=== PATIENT | female | born 1965 | race African-American/Black ===

== ENCOUNTER 2018-04-02 23:46 | Emergency (ER) | payer OTHER ==
[~2018-04-02] VITALS: Ht 165.1 cm; Wt 40.8 kg
--- NOTE | 2018-04-03 01:14 | PHYS DOC ---
Past Medical History Past Medical History: Anemia, Dementia Past Surgical History: Other Additional Past Surgical Histo: NOT A GOOD HISTORIAN Alcohol Use: Sober Drug Use: None Adult General Chief Complaint Chief Complaint: LOWER EXTREMITY SWELLING HPI HPI Patient is a 52 year old female who presents with lower extremity swelling, tingling, and pain. Patient notes that yesterday she developed increased swelling and pain in her right lower extremity. And then today she noticed tingling in bilateral extremities more severe on the right than left. Patient notes she has had similar symptoms occasions, but is unable to recall any specific problems. She notes she has had issues with balance for the last couple months patient denies falls or syncope, she denies any change in her symptoms today. Patient notes she was [place] [facility] [place] was having problems with weakness and confusion and similar lower extremity symptoms. She reports she was diagnosed with presumptive dementia during this hospitalization and prescribed an unknown medication for the similar lower extremity symptoms. Information was hard to gather due to patient being a poor historian. Review of Systems Review of Systems Constitutional: Denies fever or chills [] Eyes: Denies change in visual acuity, redness, or eye pain [] HENT: Denies nasal congestion or sore throat [] Respiratory: Denies cough or shortness of breath [] Cardiovascular: No additional information not addressed in HPI [] GI: Denies abdominal pain, nausea, vomiting, bloody stools. Notes recent diarrhea [] : Denies dysuria or hematuria [] Musculoskeletal: Denies back pain or joint pain [] Integument: Denies rash or skin lesions [] Neurologic: Denies headache, focal weakness or sensory changes, notes recent balance issues[] Complete systems were reviewed and found to be within normal limits, except as documented in this note. Family History Family History Noncontributory Current Medications Current Medications Current Medications Medications (Trade) Dose Ordered Sig/Emily Start Time Stop Time Status Last Admin Dose Admin Sodium Chloride 1,000 ml @ 1,000 mls/hr 1X ONCE 04/03/18 01:15 04/03/18 02:15 DC Allergies Allergies Allergies Coded Allergies Type Severity Reaction Last Updated Verified aspirin Allergy Intermediate 04/02/18 Yes Physical Exam Physical Exam Constitutional: Well developed, well nourished, no acute distress, non-toxic appearance. [] HENT: Normocephalic, atraumatic, oropharynx moist, no oral exudates, nose normal. [] Eyes: PERRL, EOMI, conjunctiva normal, no discharge. [] Neck: Normal range of motion, no tenderness, supple, no stridor. [] Cardiovascular:Heart rate regular rhythm, no murmur [] Lungs & Thorax: Bilateral breath sounds clear to auscultation [] Abdomen: Nondistended, soft, mild suprapubic tenderness, no masses, no pulsatile masses. [] Skin: Warm, dry, ecchymoses on L volar forearm, no erythema on bilateral LE. [] Back: No tenderness, no CVA tenderness. [] Extremities: LLE tenderness, bilateral dorsal foot tenderness. no cyanosis, ROM intact, no edema. [] Neurologic: Alert and oriented X 3, normal motor function, normal sensory function, no focal deficits noted. CN II through XII intact bilaterally [] Psychologic: Affect normal, judgement normal, mood normal. [] Current Patient Data Vital Signs Vital Signs Date Time Temp Pulse Resp B/P (MAP) Pulse Ox O2 Delivery O2 Flow Rate FiO2 04/02/18 23:46 98.3 85 18 118/71 (87) 100 Room Air 98.3 Lab Values Laboratory Tests Test 04/03/18 01:30 White Blood Count 13.5 x10^3/uL (4.0-11.0) H Red Blood Count 2.42 x10^6/uL (3.50-5.40) L Hemoglobin 8.0 g/dL (12.0-15.5) L Hematocrit 24.4 % (36.0-47.0) L Mean Corpuscular Volume 101 fL (79-100) H Mean Corpuscular Hemoglobin 33 pg (25-35) Mean Corpuscular Hemoglobin Concent 33 g/dL (31-37) Red Cell Distribution Width 19.3 % (11.5-14.5) H Platelet Count 567 x10^3/uL (140-400) H Neutrophils (%) (Auto) 71 % (31-73) Lymphocytes (%) (Auto) 22 % (24-48) L Monocytes (%) (Auto) 6 % (0-9) Eosinophils (%) (Auto) 1 % (0-3) Basophils (%) (Auto) 1 % (0-3) Neutrophils # (Auto) 9.5 x10^3uL (1.8-7.7) H Lymphocytes # (Auto) 2.9 x10^3/uL (1.0-4.8) Monocytes # (Auto) 0.8 x10^3/uL (0.0-1.1) Eosinophils # (Auto) 0.1 x10^3/uL (0.0-0.7) Basophils # (Auto) 0.1 x10^3/uL (0.0-0.2) Prothrombin Time 20.0 SEC (11.7-14.0) H Prothrombin Time INR 1.8 (0.8-1.1) H PTT 44 SEC (24-38) H Sodium Level 140 mmol/L (136-145) Potassium Level 4.2 mmol/L (3.5-5.1) Chloride Level 111 mmol/L (98-107) H Carbon Dioxide Level 19 mmol/L (21-32) L Anion Gap 10 (6-14) Blood Urea Nitrogen 11 mg/dL (7-20) Creatinine 0.8 mg/dL (0.6-1.0) Estimated GFR (Cockcroft-Gault) 75.3 BUN/Creatinine Ratio 14 (6-20) Glucose Level 78 mg/dL (70-99) Lactic Acid Level 0.6 mmol/L (0.4-2.0) Calcium Level 7.6 mg/dL (8.5-10.1) L Magnesium Level 1.9 mg/dL (1.8-2.4) Total Bilirubin 0.6 mg/dL (0.2-1.0) Aspartate Amino Transferase (AST) 12 U/L (15-37) L Alanine Aminotransferase (ALT) 21 U/L (14-59) Alkaline Phosphatase 105 U/L (46-116) Total Protein 5.6 g/dL (6.4-8.2) L Albumin 2.2 g/dL (3.4-5.0) L Albumin/Globulin Ratio 0.6 (1.0-1.7) L Laboratory Tests 04/03/18 01:30 Laboratory Tests 04/03/18 01:30 EKG EKG [] Radiology/Procedures Radiology/Procedures PROCEDURE: VENOUS LOWER EXT BILATERAL Examination: Bilateral Lower Extremity Venous Doppler Ultrasound History: Bilateral leg swelling Comparison: None Procedure: Kline scale, color flow 2D and spectal waveform analysis images are obtained with and without compression in the area of the common femoral vein, superficial femoral vein - femoral vein junction, main femoral vein (superficial femoral vein) and popliteal vein. Veins of the proximal calf are also imaged. Findings: There is normal duplex flow, color flow and compressibility of all visualized vein segments. No evidence of deep venous thrombus is present. Soft tissue edema identified in the bilateral lower legs. Few prominent the bilateral inguinal lymph nodes identified. Impression: No evidence of DVT in the visualized bilateral lower extremity venous system. Electronically signed by: Denis Espinoza MD (04/03/2018 2:22 AM) [id number] ] Course & Med Decision Making Course & Med Decision Making 52-year-old female presenting with right lower extremity swelling for 2 days and bilateral lower extremity tingling for 1 day. Patient denies any chest pain shortness of breath history of DVT/PE. She notes she was recently admitted to [facility] for weakness confusion and to rule out intracranial neoplasm. Bilateral lower extremity upper ultrasound does not show any evidence of DVT. Labs were collected and evaluated. Hgb found to be 8.0 Patient's vital signs are stable and there is no evidence of an acute drop in hemoglobin. No previous results available for comparison. Patient also has a low albumin at 2.2. Discussed proper nutrition with the patient and there is a chance that this may also be related to her edema. Patient stable for discharge with outpatient follow-up with PCP. Discussed findings and plan with patient, who acknowledge understanding and agreement. [] Dragon Disclaimer Dragon Disclaimer This electronic medical record was generated, in whole or in part, using a voice recognition dictation system. Departure Departure Impression: Primary Impression: Anemia Additional Impression: Edema Disposition: 01 HOME, SELF-CARE Condition: STABLE Referrals: JOHNNIE ARAGON MD (PCP) Patient Instructions: Anemia, Nonspecific-Brief, Peripheral Edema Problem Qualifiers Primary Impression: Anemia Anemia type: unspecified type Qualified Codes: D64.9 - Anemia, unspecified Additional Impression: Edema Edema type: unspecified Qualified Codes: R60.9 - Edema, unspecified JOHNNIE ANAYA DO Apr 03, 2018 01:14
[2018-04-03] MEDS ORDERED: IV NORMAL SALINE 1000ML BAG 1,000 ML IV ONE (01:15)
[2018-04-03 01:42] LABS: BASO # 0.1 x10^3/uL (0.0-0.2); BASO % 1 % (0-3); EOS # 0.1 x10^3/uL (0.0-0.7); EOS % 1 % (0-3); HEMATOCRIT 24.4 % (36.0-47.0); LYMPH # 2.9 x10^3/uL (1.0-4.8); LYMPH % 22 % (24-48); MEAN CORPUSCULAR HEMOGLOBIN 33 pg (25-35); MEAN CORPUSCULAR HGB CONC 33 g/dL (31-37); MEAN CORPUSCULAR VOLUME 101 fL (79-100); MONO # 0.8 x10^3/uL (0.0-1.1); MONO % 6 % (0-9); NEUT # 9.5 x10^3uL (1.8-7.7); NEUT % 71 % (31-73); PLATELET COUNT 567 x10^3/uL (140-400); RED BLOOD COUNT 2.42 x10^6/uL (3.50-5.40); RED CELL DISTRIBUTION WIDTH 19.3 % (11.5-14.5); WHITE BLOOD COUNT 13.5 x10^3/uL (4.0-11.0)
[2018-04-03 01:50] LABS: CALCIUM 7.6 mg/dL (8.5-10.1); CREATININE 0.8 mg/dL (0.6-1.0); GFR 75.3; POTASSIUM 4.2 mmol/L (3.5-5.1)
[2018-04-03 01:56] LABS: ALBUMIN 2.2 g/dL (3.4-5.0); ALBUMIN/GLOBULIN RATIO 0.6 (1.0-1.7); MAGNESIUM 1.9 mg/dL (1.8-2.4); TOTAL BILIRUBIN 0.6 mg/dL (0.2-1.0); TOTAL PROTEIN 5.6 g/dL (6.4-8.2)
--- NOTE | 2018-04-03 02:26 | RAD ---
Examination: Bilateral Lower Extremity Venous Doppler Ultrasound History: Bilateral leg swelling Comparison: None Procedure: Kline scale, color flow 2D and spectal waveform analysis images are obtained with and without compression in the area of the common femoral vein, superficial femoral vein - femoral vein junction, main femoral vein (superficial femoral vein) and popliteal vein. Veins of the proximal calf are also imaged. Findings: There is normal duplex flow, color flow and compressibility of all visualized vein segments. No evidence of deep venous thrombus is present. Soft tissue edema identified in the bilateral lower legs. Few prominent the bilateral inguinal lymph nodes identified. Impression: No evidence of DVT in the visualized bilateral lower extremity venous system. Electronically signed by: Denis Espinoza MD (04/03/2018 2:22 AM) [facility] [place]
[2018-04-03 03:00] VITALS: BP 131/75
== END 2018-04-03 02:59 | disposition home or self-care (01) ==
LOC: ER 23:46
DX: R60.0 Localized edema (principal); D64.9 Anemia, unspecified; F03.90 Unspecified dementia, unspecified severity, without behavioral disturbance, psychotic disturbance, mood disturbance, and anxiety; Z88.6 Allergy status to analgesic agent
CPT/HCPCS: 36415; 80053; 83605; 83735; 85025; 85610; 85730; 93970; 99285-25